=== PATIENT | female | born 1950 | race Caucasian/White ===

== ENCOUNTER 2020-06-18 22:57 | Emergency (ER) | payer OTHER ==
[~2020-06-18] VITALS: Ht 152.4 cm; Wt 65.8 kg
[2020-06-18] MEDS ORDERED: COZAAR25 MG (23:21)
[2020-06-18] MEDS ORDERED: FORTAMET500 MG (23:21)
[2020-06-19] MEDS ORDERED: LEVSIN/SL0.125 MG SL (04:45)
[2020-06-19] MEDS ORDERED: PEPCID40 MG PO (04:45)
== END 2020-06-19 05:08 | disposition home or self-care (01) ==
LOC: ER 22:57
DX: N28.1 Cyst of kidney, acquired (principal); R10.11 Right upper quadrant pain